=== PATIENT | male | born 1990 | race African-American/Black ===

== ENCOUNTER 2024-12-21 16:43 | Emergency (ER) | payer MEDICAID, OTHER ==
[~2024-12-21] VITALS: Ht 177.8 cm; Wt 90.0 kg
[2024-12-21 16:45] VITALS: O2SAT 100
[2024-12-21 17:19] LABS: BASOPHILS % 0.6 % (0.0-2.0); EOSINOPHILS % 1.5 % (0.0-5.0); HEMATOCRIT. 47.0 % (42.0-52.0); HEMOGLOBIN. 15.5 g/dL (14.0-18.0); LYMPHOCYTES % 29.9 % (20.0-50.0); MEAN PLATELET VOLUME 7.1 fl (7.4-10.4); MONOCYTES % 7.5 % (2.0-8.0); NEUTROPHILS % 60.5 % (40.0-76.0); PLATELET 326 x1000/uL (130-400); RED BLOOD CELL COUNT 5.08 mill/uL (4.7-6.1); RED CELL DISTRIBUTION WIDTH 13.2 % (11.6-14.6)
[2024-12-21 17:56] LABS: CREATININE 1.3 mg/dL (0.6-1.3); UREA NITROGEN BLOOD 16 mg/dL (9-23)
[2024-12-21 18:19] VITALS: BP 134/71; PULSE 99; RESP 24; TEMP 36.7; O2SAT 100
== END 2024-12-21 18:24 | disposition home or self-care (01) ==
LOC: ER 16:43
DX: G40.909 Epilepsy, unspecified, not intractable, without status epilepticus (principal)
CPT/HCPCS: 80048; 83735; 85025; 36415; 99283; Z7610 ×2; A4606

== ENCOUNTER 2025-04-27 15:55 | Emergency (ER) | payer OTHER, MEDICAID ==
[~2025-04-27] VITALS: Ht 182.9 cm; Wt 118.0 kg
[2025-04-27 15:56] VITALS: O2SAT 97
[2025-04-27 17:07] LABS: BASOPHILS % 0.2 % (0.0-2.0); EOSINOPHILS % 1.3 % (0.0-5.0); HEMATOCRIT. 45.5 % (42.0-52.0); HEMOGLOBIN. 14.9 g/dL (14.0-18.0); LYMPHOCYTES % 35.4 % (20.0-50.0); MEAN PLATELET VOLUME 7.4 fl (7.4-10.4); MONOCYTES % 9.2 % (2.0-8.0); NEUTROPHILS % 53.9 % (40.0-76.0); PLATELET 254 x1000/uL (130-400); RED BLOOD CELL COUNT 4.86 mill/uL (4.7-6.1); RED CELL DISTRIBUTION WIDTH 13.1 % (11.6-14.6)
[2025-04-27 17:22] LABS: CREATININE 1.1 mg/dL (0.6-1.3); UREA NITROGEN BLOOD 12 mg/dL (9-23)
[2025-04-27 17:23] LABS: ETHANOL BLOOD < 10 mg/dL (<10)
[2025-04-27 18:37] VITALS: BP 150/90; PULSE 69; RESP 18; TEMP 37.2; O2SAT 99
== END 2025-04-27 18:38 | disposition home or self-care (01) ==
LOC: ER 15:55
DX: R55 Syncope and collapse (principal)
CPT/HCPCS: 36415; 80048; 80320; 85025; 93005; 99284; G0480